=== PATIENT | male | born 1965 | race Caucasian/White ===

== ENCOUNTER 2023-04-17 20:45 | Emergency (ER) | payer OTHER, SELFPAY ==
[2023-04-17 20:51] VITALS: BP 182/92; PULSE 78; RESP 18; O2SAT 97; BMI 23.4
--- NOTE | 2023-04-17 21:23 | ED_ITS ---
HPI - Eye Problem General Chief complaint: Eye Problems Stated complaint: Dog hit R eye Time Seen by Provider: 04/17/23 21:03 Source: patient and family Mode of arrival: ambulatory Limitations: no limitations History of Present Illness HPI Narrative: Patient is a very nice 58-year-old gentleman who was hit by his [place] with the nose into his right eye, this occurred approximately 1 hour ago we can open his eye is eye is blurry, he has had previous corneal abrasions from the [place] also. He presents with this family for help, chief complaint: eye pain, eye injury and vision change Onset (ago): hour(s) Onset description: sudden Location: left eye Eye Symptoms: pain, foreign body sensation, blurry vision and photophobia Place: home Mechanism: direct trauma Severity: moderate If Pain, Quality: sharp Associated symptoms: none Treatments Prior to Arrival: none Related Data Patient tetanus UTD: Yes Home Medications Medication Instructions Recorded Confirmed aspirin 81 mg capsule 81 mg PO DAILY 04/17/23 04/17/23 atorvastatin 20 mg tablet (Lipitor) 20 mg PO DAILY 04/17/23 04/17/23 carvedilol 25 mg tablet (Coreg) 25 mg PO BID 04/17/23 04/17/23 fexofenadine 180 mg tablet 180 mg PO DAILY 04/17/23 04/17/23 (Aller-Fex) insulin glargine 100 unit/mL (3 17 unit subcut DAILY 04/17/23 04/17/23 mL) subcutaneous pen losartan 100 mg tablet (Cozaar) 100 mg PO DAILY 04/17/23 04/17/23 vitamin B complex-vitamin C-folic 1 tab PO DAILY 04/17/23 04/17/23 acid 0.8 mg tablet (Dialyvite 800) Allergies Allergy/AdvReac Type Severity Reaction Status Date / Time amlodipine [From [facility]] Allergy Verified 04/17/23 21:10 lisinopril Allergy Swelling Verified 04/17/23 20:54 of Lip/Tongue/Throat Review of Systems Status of ROS: Reports: 6 or more systems reviewed and unremarkable except as noted in History and below [facility] Medical History Osteopenia ?M85.80 - Other specified disorders of bone density and structure, unspecified site (ICD-10) Patient on peritoneal dialysis ?Z99.2 - Dependence on renal dialysis (ICD-10) Chronic renal insufficiency, stage III (moderate) ?N18.30 - Chronic kidney disease, stage 3 unspecified (ICD-10) Hypertension ?I10 - Essential (primary) hypertension (ICD-10) Controlled type 2 diabetes mellitus ?E11.9 - Type 2 diabetes mellitus without complications (ICD-10) Social History Smoking Status: Never smoker How often do you have a drink containing alcohol: never AUDIT-C Alcohol total score: 0 Non-prescribed substance use: denies use Exam Narrative: Exam Narrative: On examination, the lot of blepharospasm in his right eye, his pupils are equal round reactive to light there is redness, upper lower lids are normal. Upper lid is everted and otherwise normal, lower lid is checked and normal, extraocular muscles are normal. Pontocaine took away the foreign body sensation entirely. Fluorescein was used and he is has a long corneal flap, from the abrasion come across, there is no hyphema, and no pooling of floor seen within the eye. Patient is really unable to see visual acuity, he is 2100 out of the right eye. Const: Vital Signs, click to edit/add: Vital Signs - 24 hr 04/17/23 20:51 04/17/23 21:43 Temperature 98.2 F Pulse Rate [Pulse Oximeter] 78 76 Respiratory Rate 18 18 Blood Pressure [Ri ght Upper Arm] 182/92 H Pulse Oximetry 97 97 Oxygen Delivery Me thod Room Air Room Air Documenting provider has reviewed patient's vital signs: yes Course Course ED Course: I discussed with him he has a really good corneal abrasion, I suspect that we would leave this anyway. I do think he needs prophylaxis with antibiotics, and lubrication with erythromycin. He also will need pain medication, he is a dialysis patient, peritoneal, he says he can take ibuprofen although I question this. 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 He is going to be seen by Optometry tomorrow at [facility] eye care Vital Signs Vital signs: Initial Vital Signs Pulse Rate 78 04/17/23 20:51 Respiratory Rate 18 04/17/23 20:51 Blood Pressure 182/92 H 04/17/23 20:51 Blood Pressure Mean 122 H 04/17/23 20:51 Blood Pressure Position Sitting 04/17/23 20:51 Pulse Oximetry 97 04/17/23 20:51 Oxygen Delivery Method Room Air 04/17/23 20:51 Vital Signs Pulse Rate 78 04/17/23 20:51 Respiratory Rate 18 04/17/23 20:51 Blood Pressure 182/92 H 04/17/23 20:51 Pulse Oximetry 97 04/17/23 20:51 Oxygen Delivery Method Room Air 04/17/23 20:51 Temperature 98.2 F 04/17/23 21:43 Pulse Rate 76 04/17/23 21:43 Respiratory Rate 18 04/17/23 21:43 Blood Pressure 182/92 H 04/17/23 20:51 Pulse Oximetry 97 04/17/23 21:43 Oxygen Delivery Method Room Air 04/17/23 21:43 MDM - Eye Problem Differential Diagnosis Differential diagnosis: Likely corneal abrasion, conjunctivitis, acute iritis, hyphema, periorbital cellulitis, subconjunctival hemorrhage, glaucoma, corneal ulcer and ruptured globe Medical Records Attestation: I reviewed the patient's medical records. Discharge Plan Discharge Clinical Impression: Corneal abrasion Patient Disposition: Home w/ Parent or Adult Condition: Stable Instructions: Corneal Abrasion (ED) Additional Instructions: home,rest and followup with [facility] tommorow. suggest the vicodin and avoidance of the NSAIDS until you get confirmation from Renal. I did put some Tropicamide in the eye for cyclopegia, make sure you tell the eye person that. apply to the affected eye every 6-8hrs for prevention of infection and lubrication. Activity Level: Light activity Prescriptions: No Action aspirin 81 mg capsule 81 mg PO DAILY atorvastatin [Lipitor] 20 mg tablet 20 mg PO DAILY carvedilol [Coreg] 25 mg tablet 25 mg PO BID Rx Instructions: must administer with a meal/food Dialyvite 800 0.8 mg tablet 1 tab PO DAILY fexofenadine [Aller-Fex] 180 mg tablet 180 mg PO DAILY insulin glargine 100 unit/mL (3 mL) insulin pen 17 unit subcut DAILY losartan [Cozaar] 100 mg tablet 100 mg PO DAILY Stand Alone Forms: MyHealth Info Instructions
[2023-04-17 21:43] VITALS: PULSE 76; RESP 18; TEMP 36.8; O2SAT 97
== END 2023-04-17 21:45 | disposition home or self-care (01) ==
LOC: ED 21:33
PROVIDERS: Emergency Provider Family Medicine
DX: S05.01XA Injury of conjunctiva and corneal abrasion without foreign body, right eye, initial encounter (principal); W54.1XXA Struck by dog, initial encounter
CPT/HCPCS: 65222; 99283; A9270